=== PATIENT | male | born 1960 | race Caucasian/White ===

== ENCOUNTER 2018-04-05 21:57 | Emergency (ER) | payer SELFPAY ==
[~2018-04-05] VITALS: Ht 172.7 cm; Wt 70.3 kg
[~2018-04-05 21:57] MED LIST: ANDROGEL1.62% TOP; DOXYCYCLINE MO100 MG PO; SERTRALINE HYD100 MG PO; SUBOXONE 8 MG-21 FIL SL; VITAMIN C1000 M1 PO
--- NOTE | 2018-04-05 22:31 | ED GENERAL ADULT ---
History of Present Illness General Chief Complaint: ETOH/Drug Related Complaint Stated Complaint: REQUESTING DETOX Source: patient, family Exam Limitations: no limitations Vital Signs & Intake/Output Vital Signs & Intake/Output Vital Signs Date Time Temp Pulse Resp B/P B/P Pulse O2 O2 Flow FiO2 Mean Ox Delivery Rate 04/06 0733 97.1 73 18 126/82 93 Room Air 04/06 0446 96.2 95 18 130/70 96 Room Air 04/06 0206 69 18 108/65 94 Room Air 04/05 2208 98.2 81 16 145/92 98 Room Air Room Air ED Intake and Output 04/06 0000 04/05 1200 Intake Total 0 Output Total Balance 0 Intake, Oral 0 Patient 155 lb Weight Reconcile Medications Ascorbic Acid (Vitamin C) 1,000 MG TAB 1 TAB PO DAILY SUPPLEMENT (Reported) BUPRENORPHINE HCL/NALOXONE HCL (Suboxone 8 MG-2 MG Sl Film) 8 MG-2 MG FILM 1 FILM SL DAILY MENTAL HEALTH (Reported) DOXYCYCLINE MONOHYDRATE (Doxycycline Monohydrate) 100 MG CAPSULE 1 TAB PO BID LYME PROPHYLAXIS SERTRALINE HCL (Sertraline Hydrochloride) (Unknown Strength) TABLET (Unknown Dose) PO DAILY MENTAL HEALTH (Reported) Testosterone (Androgel) (Unknown Strength) 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 PT CURRENTLY INTOXICATED. DENIES COMPLAINTS. FRIENDS FOUND HIM DRUNK WITH MULTIPLE BOTTLES EMPTY AROUNDS THE HOUSE. PT IS KNOWN TO HAVE MULTIPLE GUNS IN THE HOUSE, AGAIN HE DENIES SI. PT TEARFUL Triage Nurses Notes Reviewed? yes HPI: 57M PMH EtOH abuse presenting for detox. Brought in by family and friends, drinking several times per day for months. Patient had expressed suicidal thoughts to them, saying he wants to shoot himself and kill himself, and the patient has guns in the house. He is currently intoxicated, cooperative, but gives minimal history. (Dolly VIZCARRA,[facility]) Allergies Coded Allergies: Penicillins (HIVES 04/06/18) (Salbador Briseno DO) Past History Travel History Traveled to [place] past 21 day No Medical History Any Pertinent Medical History? see below for history Neurological: NONE EENT: NONE Cardiovascular: NONE Respiratory: bronchitis Gastrointestinal: NONE Hepatic: NONE Renal: NONE Musculoskeletal: disk herniation Psychiatric: alcohol dependence Endocrine: NONE Blood Disorders: NONE Cancer(s): NONE STUDENT COUNSELOR/Reproductive: NONE Influenza Vaccine: 10/17/07 Surgical History Surgical History: non-contributory Psychosocial History Who do you live with Spouse What is your primary language [place]ralt[place] Tobacco Use: Never used ETOH Use: alcoholic Illicit Drug Use: denies illicit drug use Family History Hx Contributory? No (Queenie Alberto MD) Review of Systems Review of Systems Constitutional: Reports: no symptoms. EENTM: Reports: no symptoms. Respiratory: Reports: no symptoms. Cardiovascular: Reports: no symptoms. GI: Reports: no symptoms. Genitourinary: Reports: no symptoms. Musculoskeletal: Reports: no symptoms. Skin: Reports: no symptoms. Neurological/Psychological: Reports: no symptoms. Hematologic/Endocrine: Reports: no symptoms. Immunologic/Allergic: Reports: no symptoms. All Other Systems: Reviewed and Negative (Queenie Alberto MD) Physical Exam Physical Exam General Appearance: well developed/nourished, intoxicated Head: atraumatic, normal appearance Eyes: Bilateral: normal appearance, PERRL, EOMI. 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 No CVA/TIA Diagnosis: No Sepsis Present: No Sepsis Focused Exam Completed? No (Queenie Alberto MD) Progress Differential Diagnoses I considered the following diagnoses in my evaluation of the patient: inebriation, intoxication, poison, stroke, trauma Plan of Care: Orders Procedure Date/time Status Regular Diet 04/06 B Active CIWA 04/06 18 Active CASE MANAGEMENT CONSULT 04/06 18 Active URINE DRUG SCREEN FOR ER ONLY 04/05 2200 Complete ETHANOL 04/05 2200 Complete COMPREHENSIVE METABOLIC PANEL 04/05 2200 Complete CBC WITHOUT DIFFERENTIAL 04/05 2200 Complete ED CRISIS PSYCH CONSULT 04/05 2200 Active Laboratory Tests 04/06/18 0638: Urine Opiates Screen < 100, Methadone Screen < 40, Barbiturate Screen < 60, Ur Phencyclidine Scrn < 6.00, Amphetamines Screen < 100, U Benzodiazepines Scrn < 85, Urine Cocaine Screen < 50, Urine Cannabis Screen 9.70 04/05/18 2301: Anion Gap 16, Estimated GFR > 60, BUN/Creatinine Ratio 18.3, Glucose 104 H, Calcium 9.0, Total Bilirubin 0.5, AST 169 H, ALT 121 H, Alkaline Phosphatase 61, Total Protein 7.1, Albumin 4.3, Globulin 2.8, Albumin/Globulin Ratio 1.5, CBC w Diff NO MAN DIFF REQ, RBC 4.69 L, MCV 90.9, MCH 30.8, MCHC 33.8, RDW 13.1 , MPV 6.8 L, Gran % 48.2, Lymphocytes % 39.3, Monocytes % 8.1, Eosinophils % 4.1, Basophils % 0.3, Absolute Granulocytes 2.6, Absolute Lymphocytes 2.1, Absolute Monocytes 0.4, Absolute Eosinophils 0.2, Absolute Basophils 0, Serum Alcohol 410.0 (Queenie Alberto MD) Initial ED EKG: none Hand-Off Endorsed To: Salbador Briseno DO Endorsed Time: 0700 Pending: consult, labs (Linden Hauser MD) Comments: Patient meets no criteria for inpatient detox. I assumed care at shift change while awaiting the patient to achieve sobriety. He was able to ambulate at the time of my reassessment and requested discharge which I felt was reasonable. Stable for discharge, outpatient resources provided. (Salbador Briseno DO) Departure Departure Condition: Stable Clinical Impression Primary Impression: Alcohol intoxication Qualifiers: Complication of substance-induced condition: with delirium Qualified Code: F10.921 - Alcohol use, unspecified with intoxication delirium Secondary Impressions: Suicidal ideation Referrals: Josie VIZCARRA,Alexander Resendez (PCP/Family) Departure Forms: Customer Survey General Discharge Information (Queenie Alberto MD) Departure Disposition: STILL A PATIENT (Linden Hauser MD) Critical Care Note Critical Care Note Critical Care Time: non-applicable (Linden Hauser MD)
[2018-04-05 23:07] LABS: ABSOLUTE BASOPHIL COUNT 0 /CUMM (0.0-0.2); ABSOLUTE EOSINOPHIL COUNT 0.2 /CUMM (0.0-0.7); ABSOLUTE GRANULOCYTE CT 2.6 /CUMM (1.4-6.5); ABSOLUTE LYMPH COUNT 2.1 /CUMM (1.2-3.4); ABSOLUTE MONOCYTE COUNT 0.4 /CUMM (0.10-0.60); BASOPHIL % 0.3 % (0.0-2.0); EOSINOPHIL % 4.1 % (0-5); GRANULOCYTE % 48.2 % (42.2-75.2); HEMATOCRIT 42.6 % (42-52); MEAN CORPUSCULAR HGB 30.8 PG (27.0-31.0); MEAN CORPUSCULAR HGB CONC 33.8 G/DL (33.0-37.0); MEAN CORPUSCULAR VOLUME 90.9 FL (80.0-94.0); MEAN PLATELET VOLUME 6.8 FL (7.4-10.4); PLATELET COUNT 218 /CUMM (130-400); RBC DISTRIBUTION WIDTH 13.1 % (11.5-14.5); RED BLOOD CELL CT 4.69 /CUMM (4.70-6.10); WHITE BLOOD CELL COUNT 5.3 /CUMM (4.8-10.8)
[2018-04-06 09:51] VITALS: BP 113/63
== END 2018-04-06 10:06 ==
LOC: ERH 21:57
PROVIDERS: Pediatrics
DX: F10.129 Alcohol abuse with intoxication, unspecified (principal); R45.851 Suicidal ideations
CPT/HCPCS: 80307; G0480